=== PATIENT | female | born 1990 | race Caucasian/White ===

== ENCOUNTER 2018-03-19 13:24 | Emergency (ER) | payer OTHER ==
--- NOTE | 2018-03-19 13:52 | EDPHY ---
H & P Stated Complaint: Pt had L arm numb sitting at desk 1hr [employer], lips and tongue - Personal History LMP (Females 10-55): Extended Cycle BCP/Inj Current Tetanus/Diphtheria Vaccine: Yes - Medical/Surgical History Hx Asthma: No Hx Chronic Respiratory Disease: No Hx Diabetes: No Hx Cardiac Disease: No Hx Renal Disease: No Hx Cirrhosis: No Hx Alcoholism: No Hx HIV/AIDS: No Hx Splenectomy or Spleen Trauma: No Other PMH: none - Social History Smoking Status: Never smoked Time Seen by Provider: 03/19/18 13:39 HPI/ROS: CHIEF COMPLAINT: Facial and left upper extremity numbness HISTORY OF PRESENT ILLNESS: 27-year-old female presents with numbness. She was sitting at her desk at 12:15 p.m. When she had the acute onset of numbness in her entire left upper extremity. This subsided somewhat and then she developed numbness of the tongue and around her mouth and nose. Symptoms have now almost completely resolved. No headache and no recent head injury. History of migraine headaches; no prior associated neurologic symptoms. REVIEW OF SYSTEMS: complete 10 point ROS reviewed and is negative except for the noted elements in the HPI (Kennedi Estrella S) - Physical Exam Exam: General Appearance: Alert, pleasant Eyes: Pupils equal and round, no conjunctival pallor or injection ENT, Mouth: Mucous membranes moist Neck: Normal inspection Respiratory: Lungs are clear to auscultation Cardiovascular: Regular rate and rhythm Gastrointestinal: Abdomen is soft and nontender Neurological: Alert, oriented x3, cranial nerves II through XII intact, motor 5 /5, sensory intact to light touch, normal gait. Skin: Warm and dry, no rash Extremities: Nontender, no pedal edema Psychiatric: Mood and affect normal (Kennedi Estrella S) Constitutional: Initial Vital Signs Temperature (C) 36.5 C 03/19/18 13:29 Heart Rate 81 03/19/18 13:29 Respiratory Rate 16 03/19/18 13:29 Blood Pressure 139/87 H 03/19/18 13:29 O2 Sat (%) 98 03/19/18 13:29 O2 Delivery Mode Room Air Allergies/Adverse Reactions: Penicillins Allergy (Verified 03/19/18 13:27) Medical Decision Making - Diagnostics Imaging Results: Imaging Impressions Brain MRI 03/19/18 14:16 Impression: 1. Normal MRI of the brain without contrast. If symptoms worsen, additional imaging may be necessary. Findings discussed with Jr Evans M.D. at 15:48 hour, 03/19/2018. ED Course/Re-evaluation: This pt presents after an episode of paresthesias, now resolved. Neurologic exam is normal. Will obtain MRI brain. 1430: now has a slight right frontal LARKIN, no numbness. Declines pain meds. Likely atypical migraine LARKIN, MRI pending. 3pm-signed over to Dr. Evans, MRI pending. If MRI negative, suggest d/c home with neuro f/u. (Kennedi Estrella) Differential Diagnosis: Headache including but not limited to subarachnoid hemorrhage, migraine headache , tension headache and infectious causes such as meningitis, pharyngitis and sinusitis. (Kennedi Estrella) Other Provider: Care assumed at 2:50 p.m. With plan for MRI, discharge home with diagnosis of atypical migraine headache if it is normal. 1600: MRI results normal, reviewed with the patient and her family. Warned not to use Imitrex for atypical migraine with neurologic symptoms. She is pretty much asymptomatic now, feels comfortable going home. (Jr Evans) - Data Points Laboratory Results: Laboratory Results 03/19/18 14:09 03/19/18 14:09 03/19/18 03/19/18 14:09 14:09 WBC 6.47 10^3/uL 10^3/uL (3.80-9.50) RBC 4.67 10^6/uL 10^6/uL (4.18-5.33) Hgb 14.4 g/dL g/dL (12.6-16.3) Hct 41.1 % % (38.0-47.0) MCV 88.0 fL fL (81.5-99.8) MCH 30.8 pg pg (27.9-34.1) MCHC 35.0 g/dL g/dL (32.4-36.7) RDW 12.1 % % (11.5-15.2) Plt Count 172 10^3/uL 10^3/uL (150-400) MPV 9.6 fL fL (8.7-11.7) Neut % (Auto) 68.5 % % (39.3-74.2) Lymph % (Auto) 20.6 % % (15.0-45.0) [place] % (Auto) 9.9 % % (4.5-13.0) Eos % (Auto) 0.5 % L % (0.6-7.6) Baso % (Auto) 0.3 % % (0.3-1.7) Nucleat RBC Rel Count 0.0 % % (0.0-0.2) Absolute Neuts (auto) 4.44 10^3/uL 10^3/uL (1.70-6.50) Absolute Lymphs (auto) 1.33 10^3/uL 10^3/uL (1.00-3.00) Absolute Monos (auto) 0.64 10^3/uL 10^3/uL (0.30-0.80) Absolute Eos (auto) 0.03 10^3/uL 10^3/uL (0.03-0.40) Absolute Basos (auto) 0.02 10^3/uL 10^3/uL (0.02-0.10) Absolute Nucleated RBC 0.00 10^3/uL 10^3/uL (0-0.01) Immature Gran % 0.2 % % (0.0-1.1) Immature Gran # 0.01 10^3/uL 10^3/uL (0.00-0.10) Sodium 140 mEq/L mEq/L (135-145) Potassium 3.9 mEq/L mEq/L (3.3-5.0) Chloride 105 mEq/L mEq/L (97-110) Carbon Dioxide 25 mEq/l mEq/l (22-31) Anion Gap 10 mEq/L mEq/L (8-16) BUN 15 mg/dL mg/dL (7-23) Creatinine 0.9 mg/dL mg/dL (0.6-1.0) Estimated GFR > 60 Glucose 91 mg/dL mg/dL (70-100) Calcium 9.6 mg/dL mg/dL (8.5-10.4) Point of Care Test Results: Urine Collection Date 03/19/18 Collection Time 14:10 HCG Results Negative Departure - Departure Disposition: Home, Routine, Self-Care Clinical Impression: Paresthesia, Atypical migraine Condition: Fair Instructions: Migraine Headache (ED), Paresthesia (ED) Additional Instructions: Return for worsening symptoms or any concerns. Please to not use your Imitrex for recurrent numbness or weakness or headache with any neurologic symptoms. Referrals: Ant Bragg DO [Doctor of Osteopathy] - As per Instructions Corey Starks DO [Doctor of Osteopathy] - As per Instructions (Call to make an appointment. )
[2018-03-19 14:14] LABS: PLATELET COUNT 172 10^3/uL (150-400)
[2018-03-19 16:06] VITALS: BP 130/77
== END 2018-03-19 16:21 | disposition home or self-care (01) ==
DX: G43.909 Migraine, unspecified, not intractable, without status migrainosus (principal); R20.2 Paresthesia of skin